=== PATIENT | male | born 1955 | race Two or more races ===

== ENCOUNTER 2021-11-27 06:00 | Day surgery (SDC) | payer OTHER | END 2021-11-27 13:50 | disposition home or self-care (01) | LOC: AMB-ENDOS 06:00 | PROVIDERS: ATTEND Surgery | DX: D12.8 Benign neoplasm of rectum (principal); K64.8 Other hemorrhoids; Z20.822 Contact with and (suspected) exposure to COVID-19; K57.30 Diverticulosis of large intestine without perforation or abscess without bleeding; Z86.010 Personal history of colon polyps ==

== ENCOUNTER 2024-11-30 06:30 | Day surgery (SDC) | payer OTHER ==
[2024-11-30] MEDS ORDERED: MIDAZOLAM HCL 2 MG/2 ML VIAL IV ONE (13:30)
[2024-11-30] MEDS ORDERED: DIPHENHYDRAMINE HCL 50 MG/ML VIAL 1ML IV ONE (13:30)
[2024-11-30] MEDS ORDERED: fentaNYL CITRATE 50 MCG/ML AMPUL IV ONE (13:30)
== END 2024-11-30 15:00 | disposition home or self-care (01) ==
LOC: AMB-ENDOS 06:30
PROVIDERS: ATTEND Surgery
DX: D12.8 Benign neoplasm of rectum (principal); K62.5 Hemorrhage of anus and rectum; R19.4 Change in bowel habit; K57.30 Diverticulosis of large intestine without perforation or abscess without bleeding; Z86.0100 Personal history of colon polyps, unspecified

== ENCOUNTER 2024-12-28 08:00 | Inpatient (IN) | payer OTHER ==
[~2024-12-28] VITALS: Ht 167.6 cm; Wt 75.7 kg
[2025-03-02] MEDS ORDERED: ZESTRIL20 MG PO (12:25)
[2025-03-02 12:39] VITALS: BP 138/86
[2025-03-30] MEDS ORDERED: CEFTRIAXONE SODIUM 2,000 MG VIAL ONE (10:00)
[2025-03-30] MEDS ORDERED: METRONIDAZOLE/SODIUM CHLORIDE 500 MG/100 ML PIGGYBACK IV ONE ×2 (10:00→16:25)
[2025-03-30] MEDS ORDERED: HEMOSTATIC MATRIX 1 KIT KIT TOP ONE (12:07)
[2025-03-30] MEDS ORDERED: DIBUCAINE 30 GM TUBE ONE (12:08)
[2025-03-30] MEDS ORDERED: POVIDONE-IODINE 118 ML BOTT TOP ONE (12:08)
[2025-03-30] MEDS ORDERED: LIDOCAINE HCL 1%/EPINEPHRINE 20ML VIAL IJ ONE (13:15)
[2025-03-30] MEDS ORDERED: BUPIVACAINE HCL 30 ML VIAL IJ ONE (13:15)
[2025-03-30] MEDS ORDERED: SUGAMMADEX SODIUM 200 MG/2 ML VIAL IV ONE (13:20)
[2025-03-30] MEDS ORDERED: LACTOBACILLUS ACIDOPHILUS 1 CAP CAP PO SCH (13:42)
[2025-03-30] MEDS ORDERED: TAMSULOSIN HCL 0.4 MG CAP PO SCH (13:42)
[2025-03-30] MEDS ORDERED: ONDANSETRON HCL 2 MG/ML VIAL IV PRN (13:45)
[2025-03-30] MEDS ORDERED: MORPHINE SULFATE 4 MG/ML CARTRIDGE IV PRN (13:45)
[2025-03-30] MEDS ORDERED: OxyCODONE HCL 5 MG TABLET (ROXICODONE) PO PRN (13:45)
[2025-03-30] MEDS ORDERED: RINGERS SOLUTION,LACTATED 1,000 ML IV SCH (13:45)
[2025-03-30] MEDS ORDERED: HYOSCYAMINE SULFATE 0.125 MG TAB.SUBL SL SCH (17:00)
[2025-03-30] MEDS ORDERED: GABAPENTIN 300 MG CAPSULE PO SCH (17:00)
[2025-03-30] MEDS ORDERED: CIPROFLOXACIN IN 5 % DEXTROSE 400 MG/200 ML PIGGYBAG IV SCH (17:00)
[2025-03-30] MEDS ORDERED: METRONIDAZOLE/SODIUM CHLORIDE 500 MG/100 ML PIGGYBACK IV SCH (17:00)
[2025-03-30 17:51] VITALS: BP 108/64; O2SAT 98
[2025-03-30] MEDS ORDERED: ACETAMINOPHEN 500 MG GEL..CAP PO SCH (18:00)
[2025-03-30] MEDS ORDERED: FAMOTIDINE/PF 20 MG/2 ML VIAL IV PUSH SCH (21:00)
[2025-03-31 01:31] VITALS: BP 106/69; O2SAT 95
[2025-03-31 08:00] VITALS: BP 113/75; O2SAT 97
[2025-03-31 08:06] LABS: BUN CREA RATIO 9.0 (7.0-25.0); CREATININE SERUM 1.84 mg/dL (0.70-1.30); GFR 36.66; GLUCOSE FASTING 112.0 mg/dL (65-100); OSMOLALITY SERUM 285.0 MOSM/KG (275-295)
[2025-03-31] MEDS ORDERED: POLYETHYLENE GLYCOL 3350 17 GM BLIST.PACK PO SCH (09:00)
[2025-03-31 09:27] LABS: BASO % 0.1 % (0.1-1.2); EOS # 0.01 (0.04-0.54); EOS % 0.1 % (0.7-7.0); LYMPH # 1.07 (1.18-3.74); LYMPH % 11.6 % (19.3-53.1); MEAN PLATELET VOLUME 11.90 fl (9.4-12.4); MONO # 0.48 (0.24-0.82); MONO % 5.2 % (4.7-12.5); NEUT # 7.65 (1.56-6.13); NEUT % 82.8 % (34.0-71.1); RED CELL DISTRIBUTION WIDTH 12.1 % (11.6-14.4)
[2025-03-31 16:22] VITALS: BP 103/71; O2SAT 97
[2025-03-31] MEDS ORDERED: ENOXAPARIN SODIUM 40 MG/0.4 ML SYRINGE SUBCUTANEO SCH (17:00)
[2025-04-01] MEDS ORDERED: ENOXAPARIN SODIUM 40 MG/0.4 ML SYRINGE SUBCUTANEO SCH (09:00)
== END 2025-03-31 17:05 | disposition home or self-care (01) | DRG 348 ==
LOC: SURG 08:00 → O/R 08:00 → SURG 03-09 07:00 → O/R 03-27 08:25 → SURG 03-27 08:25 → O/R 03-30 08:25 → SURH 03-30 15:34
PROVIDERS: ADMIT Surgery; ATTEND Surgery
PROC: 3E0T3BZ Introduction of Anesthetic Agent into Peripheral Nerves and Plexi, Percutaneous Approach (ICD-10-PCS; 2025-03-30)
PROC: 0DBP7ZZ Excision of Rectum, Via Natural or Artificial Opening (ICD-10-PCS; principal; 2025-03-30 12:45)
DX: D12.8 Benign neoplasm of rectum (principal); K62.5 Hemorrhage of anus and rectum; K57.30 Diverticulosis of large intestine without perforation or abscess without bleeding; R19.4 Change in bowel habit; K64.8 Other hemorrhoids; Z86.0100 Personal history of colon polyps, unspecified
CPT/HCPCS: 0184T; 64430; 45123

== ENCOUNTER 2025-04-07 14:57 | Inpatient (IN) | payer OTHER ==
[~2025-04-07] VITALS: Ht 170.2 cm; Wt 75.7 kg
[~2025-04-07 14:57] MED LIST: ZESTRIL20 MG PO
--- NOTE | 2025-04-07 15:17 | NUR ---
SE RECIBE PACIENTE EN AMBULANCIA ALERTA Y ORIENTADO X3, INDICA QUE EL VIERNES [address] GASPER CONTE LE REMOVIO UN POLIPO. REFIERE QUE HOY COMENZO CON SANGRADO RECTAL. PARAMEDICOS INDICAN HIPOTENSION Y QUE SE ADMINISTRO 500ML DE 0.9NSS. BP MANUAL 96/62 MMHG.
[2025-04-07] MEDS ORDERED: PANTOPRAZOLE SODIUM 40 MG/VIAL VIAL IV ONE (16:45)
[2025-04-07] MEDS ORDERED: 0.9 % SODIUM CHLORIDE 1,000 ML IV ONE (16:45)
--- NOTE | 2025-04-07 17:26 | NUR ---
SE EDUCA SOBRE [place] MEDICO, DILMA REFIERE ENTENDER. SE EXTRAEN MUESTRAS DE LABORATORIO Y SE ADMINISTRAN MEDICAMENTOS CLAIRE ORDEN MEDICA. PACIENTE ENTREGA U/A Y O/B. PENDIENTE CT.
[2025-04-07 17:32] LABS: BASO % 0.3 % (0.1-1.2); EOS # 0.11 (0.04-0.54); EOS % 1.1 % (0.7-7.0); LYMPH # 1.43 (1.18-3.74); LYMPH % 14.1 % (19.3-53.1); MEAN PLATELET VOLUME 10.60 fl (9.4-12.4); MONO # 0.68 (0.24-0.82); MONO % 6.7 % (4.7-12.5); NEUT # 7.84 (1.56-6.13); NEUT % 77.1 % (34.0-71.1); RED CELL DISTRIBUTION WIDTH 11.7 % (11.6-14.4)
[2025-04-07 17:35] LABS: URINE BILIRRUBIN NEGATIVE (NEGATIVE); URINE BLOOD NEGATIVE; URINE GLUCOSE NEGATIVE (NEGATIVE); URINE KETONE NEGATIVE (NEGATIVE); URINE LEUKOCYTE NEGATIVE; URINE NITRATE NEGATIVE; URINE PROTEIN NEGATIVE (NEGATIVE); URINE UROBILINOGEN 0.2 E.U./dl
[2025-04-07 18:00] LABS: URINE APPEARANCE CLEAR; URINE COLOR YELLOW
[2025-04-07 18:01] LABS: URINE BACTERIA FEW; URINE CRYSTALS NEGATIVE /HPF; URINE MUCUS SCANT; URINE RBC 0-3 /HPF; URINE WBC 0-2 /hpf
[2025-04-07 18:02] LABS: INR 1.1
[2025-04-07 18:02] LABS: ob POSITIVE (NEGATIVE)
[2025-04-07 18:12] LABS: ALT/SGPT 65.0 U/L (12-78); AST/SGOT 33.0 U/L (15-37); BILIRUBIN TOTAL 0.47 mg/dL (0.3-1.2); BUN CREA RATIO 20.0 (7.0-25.0); CREATININE SERUM 1.3 mg/dL (0.70-1.30); GFR 54.73; GLOBULINA 3.2 G/DL (2.4-3.5); GLUCOSE FASTING 134.0 mg/dL (65-100); OSMOLALITY SERUM 295.0 MOSM/KG (275-295)
[2025-04-07 21:52] LABS: BASO % 0.1 % (0.1-1.2); EOS # 0.14 (0.04-0.54); EOS % 2.0 % (0.7-7.0); LYMPH # 1.58 (1.18-3.74); LYMPH % 22.6 % (19.3-53.1); MEAN PLATELET VOLUME 10.40 fl (9.4-12.4); MONO # 0.62 (0.24-0.82); MONO % 8.9 % (4.7-12.5); NEUT # 4.60 (1.56-6.13); NEUT % 65.7 % (34.0-71.1); RED CELL DISTRIBUTION WIDTH 11.7 % (11.6-14.4)
[2025-04-07] MEDS ORDERED: CIPROFLOXACIN IN 5 % DEXTROSE 200 ML IV SCH (22:18)
[2025-04-07] MEDS ORDERED: FAMOTIDINE/PF 20 MG in 0.9 % SODIUM CHLORIDE 8 ML IV PUSH SCH (22:18)
[2025-04-07] MEDS ORDERED: ACETAMINOPHEN 500 MG GEL..CAP PO PRN (22:30)
[2025-04-07] MEDS ORDERED: 0.9 % SODIUM CHLORIDE 1,000 ML IV SCH (22:30)
[2025-04-07] MEDS ORDERED: POTASSIUM CHLORIDE 20MEQ/100ML H2O PB IV ONE (22:30)
[2025-04-08 01:31] VITALS: BP 111/62; O2SAT 96
[2025-04-08 08:48] VITALS: BP 115/76; O2SAT 97
[2025-04-08] MEDS ORDERED: LISINOPRIL 20 MG TABLET PO SCH (09:00)
[2025-04-08] MEDS ORDERED: LACTOBACILLUS ACIDOPHILUS 1 CAP CAP PO NR (10:30)
[2025-04-08 16:00] VITALS: BP 138/77; O2SAT 99
[2025-04-09 00:07] VITALS: BP 132/77; O2SAT 99
[2025-04-09 06:26] LABS: BASO % 0.3 % (0.1-1.2); EOS # 0.12 (0.04-0.54); EOS % 3.0 % (0.7-7.0); LYMPH # 1.22 (1.18-3.74); LYMPH % 30.5 % (19.3-53.1); MEAN PLATELET VOLUME 10.70 fl (9.4-12.4); MONO # 0.41 (0.24-0.82); MONO % 10.3 % (4.7-12.5); NEUT # 2.23 (1.56-6.13); NEUT % 55.6 % (34.0-71.1); RED CELL DISTRIBUTION WIDTH 11.7 % (11.6-14.4)
[2025-04-09 07:13] LABS: ALT/SGPT 37.0 U/L (12-78); AST/SGOT 19.0 U/L (15-37); BILIRUBIN TOTAL 0.49 mg/dL (0.3-1.2); BUN CREA RATIO 9.0 (7.0-25.0); CREATININE SERUM 0.99 mg/dL (0.70-1.30); GFR 74.95; GLOBULINA 2.7 G/DL (2.4-3.5); GLUCOSE FASTING 85.0 mg/dL (65-100); OSMOLALITY SERUM 288.0 MOSM/KG (275-295)
[2025-04-09] MEDS ORDERED: DIPHENHYDRAMINE HCL 50 MG/ML VIAL 1ML IV SCH (08:00)
[2025-04-09 08:41] VITALS: BP 118/82; O2SAT 99
[2025-04-09] MEDS ORDERED: LACTOBACILLUS ACIDOPHILUS 1 CAP CAP PO SCH (09:00)
[2025-04-09] MEDS ORDERED: POTASSIUM CHLORIDE IN WATER 100 ML IV NR (10:00)
[2025-04-09] MEDS ORDERED: SOD FERRIC GLUC COMPLX/SUCROSE 62.5 MG in 0.9 % SODIUM CHLORIDE 50 ML IV NR (13:00)
[2025-04-09 16:00] VITALS: BP 140/85; O2SAT 100
[2025-04-09] MEDS ORDERED: POLYETHYLENE GLYCOL 3350 17 GM BLIST.PACK PO SCH (16:55)
[2025-04-10 01:06] VITALS: BP 118/73; O2SAT 100
[2025-04-10] MEDS ORDERED: SOD FERRIC GLUC COMPLX/SUCROSE 62.5 MG in 0.9 % SODIUM CHLORIDE 50 ML IV SCH (09:00)
[2025-04-10 09:17] VITALS: BP 136/78; O2SAT 97
[2025-04-10 16:13] VITALS: BP 148/89; O2SAT 98
[2025-04-10] MEDS ORDERED: AMINO ACIDS/PROTEIN HYDROLYS 30 ML BLIST.PACK PO SCH (17:00)
[2025-04-11 01:49] VITALS: BP 116/70; O2SAT 100
[2025-04-11 04:06] LABS: BASO % 0.5 % (0.1-1.2); EOS # 0.11 (0.04-0.54); EOS % 1.9 % (0.7-7.0); LYMPH # 1.71 (1.18-3.74); LYMPH % 29.0 % (19.3-53.1); MEAN PLATELET VOLUME 10.50 fl (9.4-12.4); MONO # 0.51 (0.24-0.82); MONO % 8.6 % (4.7-12.5); NEUT # 3.52 (1.56-6.13); NEUT % 59.7 % (34.0-71.1); RED CELL DISTRIBUTION WIDTH 12.9 % (11.6-14.4)
[2025-04-11] MEDS ORDERED: AMOX1TAB5 PO (08:55)
[2025-04-11] MEDS ORDERED: INTEGRA PLUS C1 EACH PO (08:55)
[2025-04-11] MEDS ORDERED: A/F PAIN RELIE500 MG PO (08:55)
[2025-04-11] MEDS ORDERED: INTESTINEX680 M1 PO (08:55)
[2025-04-11 09:04] VITALS: BP 159/92; O2SAT 97
== END 2025-04-11 15:04 | disposition home or self-care (01) | DRG 394 ==
LOC: ER 14:57 → SURH 22:57
PROVIDERS: General Practice; Internal Medicine; Surgery; ADMIT Surgery; ATTEND Surgery
PROC: BW21YZZ Computerized Tomography (CT Scan) of Abdomen and Pelvis using Other Contrast (ICD-10-PCS; principal; 2025-04-07)
PROC: 30233N1 Transfusion of Nonautologous Red Blood Cells into Peripheral Vein, Percutaneous Approach (ICD-10-PCS; 2025-04-09)
DX: K62.89 Other specified diseases of anus and rectum (principal); K62.5 Hemorrhage of anus and rectum; K62.6 Ulcer of anus and rectum